=== PATIENT | male | born 1985 | race American Indian/Alaskan Native ===

== ENCOUNTER 2018-10-30 18:31 | Emergency (ER) | payer OTHER ==
--- NOTE | 2018-10-30 19:36 | Emergency Department Report ---
Blank Doc - Documentation Documentation: 33 y o female presents left axilla pain and swelling, stating she has been taki ng antibiotics with no relief ACC eval
[2018-10-30] MEDS ORDERED: DECADRON IM ONE (21:35)
[2018-10-30] MEDS ORDERED: PEPCID PO ONE (21:36)
--- NOTE | 2018-10-30 21:41 | Emergency Department Report ---
ED Rash HPI - HPI Chief Complaint: Skin Rash Stated Complaint: ALLERGIC REACTION Time Seen by Provider: 10/30/18 19:32 Duration: 1 WEEK Location: Other (Diffuse) Suspected Cause: Unknown Rash Symptoms: Yes Itching, No Facial Swelling, No Tongue/Oral Swelling, No Breathing Difficulties, No Choking Sensation, No Wheezing/Dyspnea, No Peeling, No Blistering, No Fever, No Lightheaded, No Malaise, No Myalgias Severity: moderate Other History: Patient is a 33-year-old AA male with no past medical history presents to the ED with complaint of acute onset persistent itchy erythematous maculopapular urticarial rashes diffusely for the last 1 week. Patient states that he is unsure of the cause of the rash because there is nothing new in his life that is changed. Patient denies swollen lips or tongue, swollen throat, dysphagia, dysphonia, shortness of breath, cough, wheezing, nausea, vomiting, diarrhea or abdominal pain, fever or chills ED Review of Systems ROS: Stated complaint: ALLERGIC REACTION Other details as noted in HPI Comment: All other systems reviewed and negative Constitutional: no symptoms reported, see HPI. denies: chills, diaphoresis, fever, malaise, weakness Eyes: as per HPI. denies: eye pain, eye discharge, vision change ENT: as per HPI. denies: ear pain, throat pain, dental pain, hearing loss Respiratory: no symptoms reported, see HPI. denies: cough, orthopnea, shortness of breath, SOB with exertion Cardiovascular: as per HPI. denies: chest pain, palpitations, dyspnea on exertion, syncope, paroxysmal nocturnal dyspnea Endocrine: no symptoms reported, see HPI. denies: excessive sweating, flushing, intolerance to cold, intolerance to heat, increased hunger, increased thirst, increased urine Gastrointestinal: as per HPI. denies: abdominal pain, nausea, vomiting, diarrhea, hematemesis, hematochezia Genitourinary: as per HPI. denies: urgency, dysuria, frequency, hematuria, testicular pain, testicular mass Musculoskeletal: as per HPI. denies: back pain, joint swelling, arthralgia Skin: rash, change in color, pruritus, other (diffuse itchy erythematous urticarial rash) Neurological: as per HPI. denies: headache, weakness, numbness, paresthesias, abnormal gait Psychiatric: as per HPI Hematological/Lymphatic: as per HPI ED Past Medical Hx - Past Medical History Previous Medical History?: No - Surgical History Past Surgical History?: No - Social History Smoking Status: Never Smoker Substance Use Type: None - Medications Home Medications: Home Medications Medication Instructions Recorded Confirmed Last Taken Type HYDROcodone/APAP 5-325 [Eagle 1 each PO Q6HR PRN #14 tablet 09/22/13 Unknown Rx 5/325 mg] Ranitidine HCl [Zantac] 150 mg PO Q12H #20 tablet 10/30/18 Unknown Rx diphenhydrAMINE [Benadryl CAP] 25 mg PO Q6HR PRN #30 capsule 10/30/18 Unknown Rx methylPREDNISolone [Medrol] 4 mg PO DAILY #21 tab.ds.pk 10/30/18 Unknown Rx Rash Exam - Exam General: Vital signs noted. No distress. Alert and acting appropriately. HEENT: No Periorbital Edema, No Conjuctival Injection, No Chemosis, No Perioral Edema, No Tongue Edema, No Uvular Edema, No Compromised Airway, No Drooling Lungs: Yes Cough (Mild and dry), No Good Air Exchange, No Wheezes, No Ronchi, No Stridor, No Labored Respirations, No Retractions, No Use of Accessory Muscles, No Other Abnormal Lung Sounds Heart: Yes Regular, No Murmur Skin: Yes Urticarial Rash (diffusely), Yes Maculopapular Rash, Yes Erythema, No Morbilliform rash, No Bulla(e), No Excoriations, No Weeping, No Tenderness, No Edema, No Encrustations, No Other Other: Positive: Abdomen Normal, Neurologic Normal, Musculoskeletal Normal ED Course - Reevaluation(s) Reevaluation #1: 10/30/18 21:41 Patient is alert and oriented 3 and is not in distress with normal vital signs. Patient was treated for acute allergic reaction in the ED with Decadron and Pepcid, and patient discharged home on Medrol Dosepak, prescription Benadryl and Zantac. Patient advised to follow-up with his primary care physician in 5-7 days for reevaluation, or return to the ED immediately if symptoms get worse. ED Medical Decision Making - Medical Decision Making Patient is alert and oriented 3 and is not in distress with normal vital signs. The patient's symptoms are likely due to acute allergic reaction to an unknown object or substance at work or home. Patient was treated for acute allergic reaction in the ED with Decadron and Pepcid, and patient discharged home on Medrol Dosepak, prescription Benadryl and Zantac. Patient advised to follow-up with his primary care physician in 5-7 days for reevaluation, or return to the ED immediately if symptoms get worse. - Differential Diagnosis Acute urticaria, acuet allergic reaction, irritant dermatitis Critical care attestation.: If time is entered above; I have spent that time in minutes in the direct care of this critically ill patient, excluding procedure time. ED Disposition Clinical Impression: Acute urticaria, Itching with irritation, Irritant dermatitis Acute allergic reaction Qualifiers: Encounter type: initial encounter Qualified Code(s): T78.40XA - Allergy, unspecified, initial encounter Disposition: TO HOME OR SELFCARE Is pt being admited?: No Does the pt Need Aspirin: No Condition: Stable Instructions: Urticaria (ED), Itchy Skin (ED) Additional Instructions: Take medications with food, drink plenty of fluids and follow up with your primary care physician as advised. Return to the ED immediately if symptoms get worse. Prescriptions: diphenhydrAMINE [Benadryl CAP] 25 mg PO Q6HR PRN #30 capsule PRN Reason: Itching methylPREDNISolone [Medrol] 4 mg PO DAILY #21 tab.ds.pk Ranitidine HCl [Zantac] 150 mg PO Q12H #20 tablet Referrals: [facility] MD ABHINAV [Primary Care Provider] - 3-5 Days Time of Disposition: 21:45 Print Language: LUX[place]
[2018-10-30 22:16] VITALS: BP 126/87
== END 2018-10-30 22:16 | disposition home or self-care (01) ==
LOC: ED 18:31
DX: T78.40XA Allergy, unspecified, initial encounter (principal); L30.9 Dermatitis, unspecified; X58.XXXA Exposure to other specified factors, initial encounter
CPT/HCPCS: 96372; 99282; J1100

== ENCOUNTER 2018-12-11 16:36 | Emergency (ER) | payer SELFPAY ==
[2018-12-11 17:04] VITALS: BP 126/85
[2018-12-11] MEDS ORDERED: CLARITIN PO ONE (17:30)
[2018-12-11] MEDS ORDERED: DEPO-Medrol IM ONE (17:30)
[2018-12-11] MEDS ORDERED: VISTARIL PO ONE (17:30)
--- NOTE | 2018-12-11 17:32 | Emergency Department Report ---
ED Rash HPI - HPI Chief Complaint: Skin Rash Stated Complaint: ALLERGIC REACTION Time Seen by Provider: 12/11/18 17:28 Location: Chest Suspected Cause: Unknown Rash Symptoms: Yes Itching, No Facial Swelling, No Tongue/Oral Swelling, No Breathing Difficulties, No Choking Sensation, No Wheezing/Dyspnea, No Peeling, No Blistering, No Fever, No Lightheaded, No Malaise, No Myalgias Severity: mild Other History: Pt is a 33-year-old male who comes to the ER again with hives. He thinks he is reacting to gain. He's been seen here for this in the past and has not followed up with dermatology. ABCs intact. There is no wheezing. Vital signs are stable. ED Review of Systems ROS: Stated complaint: ALLERGIC REACTION Other details as noted in HPI Comment: All other systems reviewed and negative ED Past Medical Hx - Past Medical History Previous Medical History?: No - Surgical History Past Surgical History?: No - Family History Family history: no significant - Social History Smoking Status: Never Smoker Substance Use Type: None - Medications Home Medications: Home Medications Medication Instructions Recorded Confirmed Last Taken Type Cetirizine HCl [Zyrtec 10mg tab] 10 mg PO DAILY #30 tablet 12/11/18 Unknown Rx diphenhydrAMINE [Benadryl CAP] 25 mg PO Q6HR PRN #30 capsule 12/11/18 Unknown Rx predniSONE [Deltasone] 20 mg PO DAILY #5 tablet 12/11/18 Unknown Rx Rash Exam - Exam General: Vital signs noted. No distress. Alert and acting appropriately. WDWN patient in NAD VS per RN flow sheet Alert and oriented to person, place and time. S1-S2. No S3 or S4. No systolic or diastolic murmur. No JVD. No pitting edema. Lungs clear to auscultation bilaterally anteriorly and posteriorly. Abdomen soft nontender bowel sounds x4 Moves all extremities well. Mood and affect appropriate. gen urticarial rash abc intact Skin: Yes Urticarial Rash Other: Positive: Abdomen Normal, Neurologic Normal, Musculoskeletal Normal ED Course Vital Signs 12/11/18 17:02 Temperature 98.4 F Pulse Rate 96 H Respiratory 18 Rate Blood Pressure 126/85 O2 Sat by Pulse 98 Oximetry ED Medical Decision Making - Medical Decision Making abc intact vss medicated for allergic rash educated on need to follow up with derm. dc home with dc plan of care. Vital Signs 12/11/18 17:02 Temperature 98.4 F Pulse Rate 96 H Respiratory 18 Rate Blood Pressure 126/85 O2 Sat by Pulse 98 Oximetry Critical care attestation.: If time is entered above; I have spent that time in minutes in the direct care of this critically ill patient, excluding procedure time. ED Disposition Clinical Impression: Allergy, urticaria Disposition: DC-01 TO HOME OR SELFCARE Is pt being admited?: No Does the pt Need Aspirin: No Condition: Stable Instructions: Urticaria (ED) Additional Instructions: DIET TOLERATED MEDS ORDERED TODAY IN ER FOLLOW INSTRUCTIONS ON THE BOTTLE FOLLOW UP WITH DERM REFERRAL BELOW ACTIVITY TOLERATED MOTRIN OR TYLENOL FOR PAIN OR FEVER RETURN TO THE ER FOR WORSENING SYMPTOMS NOT RELIEVED BY YOUR MEDICATIONS. Prescriptions: diphenhydrAMINE [Benadryl CAP] 25 mg PO Q6HR PRN #30 capsule PRN Reason: Itching predniSONE [Deltasone] 20 mg PO DAILY #5 tablet Cetirizine HCl [Zyrtec 10mg tab] 10 mg PO DAILY #30 tablet Referrals: JOE MOSLEY MD [Referring] - 3-5 Days
== END 2018-12-11 18:39 | disposition home or self-care (01) ==
LOC: ED 16:36
DX: L50.0 Allergic urticaria (principal)
CPT/HCPCS: 96372; 99282; J1040; Q0177